=== PATIENT | female | born 1995 | race Caucasian/White ===

== ENCOUNTER 2022-11-06 18:46 | Emergency (ER) | payer OTHER, SELFPAY ==
[2022-11-06 18:47] VITALS: BP 133/68; PULSE 77; RESP 18; TEMP 36.6; O2SAT 97; BMI 26.6
--- NOTE | 2022-11-06 18:54 | ECG_ITS ---
[facility] Test Date: 2022-11-06 Pat Name: GREG ALBERTO Department: Room: - Gender: Female [place]: : 1995 Requested By: [id number] Order Number: [id number] Reading MD: JESUS PAYNE Measurements Intervals [place] Rate: 58 P: 26 GA: 144 QRS: 80 QRSD: 100 T: 52 QT: 422 QTc: 419 Interpretive Statements 1100 Sinus bradycardia 1102 Sinus arrhythmia 9110 normal ECG No previous ECG available for comparison Electronically Signed On 11-08-2022 7:03:34 EDT by JESUS PAYNE
--- NOTE | 2022-11-06 19:12 | ED_ITS ---
HPI - General Adult General Chief complaint: Dizziness Stated complaint: DIZZNESS Time Seen by Provider: 11/06/22 19:06 Source: patient Mode of arrival: ambulance Limitations: no limitations History of Present Illness HPI narrative: This 26-year-old female with a history of iron deficiency anemia who is otherwise healthy and denies , tobacco use or control use presents for evaluation of an episode of dizziness. Patient states she was standing at the kitchen sink at her mom's house and suddenly fell dizziness. She states she felt like her head was spinning about her whole body was dizzy as well. She lied down on the floor and started having a panic attack and was hyperventilating at which time she felt numbness and tingling. She developed a generalized headache with some nausea. She states she is feeling much better at this time. She did not vomit and she did not pass out. She complains of a mild generalized headache. His nausea has improved. She is not on any medications for anxiety or depression. She denies that she was outside a lot today but was outside a lot over the weekend. She denies any chest pain or shortness of breath. She has no abdominal pain or back pain. She has no lower extremity pain or swelling. Related Data Home Medications Medication Instructions Recorded Confirmed No Known Home Medications 11/06/22 11/06/22 Allergies Allergy/AdvReac Type Severity Reaction Status Date / Time No Known Drug Allergies Allergy Verified 11/06/22 18:52 Review of Systems ROS Status of ROS 10 or more systems reviewed and unremarkable except as noted in history and below Exam Narrative Exam Narrative: Nurses note and vital signs reviewed and patient is not hypoxic. General: The patient appears well and in no apparent distress. Patient is resting comfortably on cart. She complains of mild dizziness when sitting up from a supine position Skin: Warm, dry, no pallor noted. There is no rash noted. Head: Normocephalic, atraumatic Eye: Normal conjunctiva, no drainage, EOMI. PERRL. No nystagmus noted Ears, Nose, Mouth, and Throat: oral mucosa is moist. Cardiovascular: Regular Rate and Rhythm Respiratory: Patient is in no distress, no accessory muscle use, lungs are clear to auscultation, no wheezing, rales or rhonchi Back: non-tender, no CVA tenderness bilaterally to percussion. GI: Normal bowel sounds, no tenderness to palpation, no masses appreciated. No rebound, guarding, or rigidity noted. Musculoskeletal: The patient has no evidence of calf tenderness, no pitting edema, symmetrical pulses noted bilaterally Neurological: A&O x4, normal speech Psychiatric: Cooperative, does not appear anxious or panicking Constitutional Vital Signs, click to edit/add: Last Vital Signs Temp 97.9 F 11/06/22 18:47 Pulse 77 11/06/22 18:47 Resp 18 11/06/22 18:47 BP 133/68 11/06/22 18:47 Pulse Ox 97 11/06/22 18:47 O2 Del Method Room Air 11/06/22 18:47 Course Vital Signs Vital signs: Vital Signs Temperature 97.9 F 11/06/22 18:47 Pulse Rate 77 11/06/22 18:47 Respiratory Rate 18 11/06/22 18:47 Blood Pressure 133/68 11/06/22 18:47 Pulse Oximetry 97 11/06/22 18:47 Oxygen Delivery Method Room Air 11/06/22 18:47 Temperature 97.9 F 11/06/22 18:47 Pulse Rate 77 11/06/22 18:47 Respiratory Rate 18 11/06/22 18:47 Blood Pressure 133/68 11/06/22 18:47 Pulse Oximetry 97 11/06/22 18:47 Oxygen Delivery Method Room Air 11/06/22 18:47 Medical Decision Making MDM Narrative Medical decision making narrative: 26-year-old female, nonsmoker, not on control presents for evaluation of an episode of dizziness while standing in the kitchen at her mom's house earlier today. She states she had to lie down on the floor and then started hyperventil ating. When she presented she had some mild as with change of position, she denies any chest pain or shortness of breath. She had mild headache. She had mild nausea. She is no focal neurologic symptoms. EKG done upon arrival was sinus bradycardia at 58 beats for minute. An IV was placed and she was given a liter of normal saline, Zofran,Meclizine and Toradol. On reevaluation she is feeling much better. Her headache and nausea have improved. Routine labs including troponin and d-dimer and urinalysis are reviewed and are normal. She has a normal white count and hemoglobin. She has a normal troponin. She has a normal d-dimer. Urine does not show any sign of infection. The results of her labs were discussed with her she states she is feeling better. She will be discharged home with her mother at this time. I encouraged her to stay very hydrated and return to emergency department as needed for any worsening or continuing symptoms Lab Data Labs: Lab Results 11/06/22 11/06/22 Range/Units 18:57 19:28 WBC 5.5 (4.0-11.0) 10^3/uL RBC 3.93 L (4.20-5.40) 10^6/uL Hgb 11.8 L (12.0-16.0) g/dL Hct 36.5 (36.0-48.0) % MCV 92.9 (81.0-99.0) fL MCH 30.0 (26.7-34.0) pg MCHC 32.3 (29.9-35.2) g/dL RDW 12.0 (11.0-15.0) % Plt Count 275 (150-450) 10^3/uL MPV 10.5 (9.5-13.5) fL Neut % (Auto) 56.1 (43.0-75.0) % Lymph % (Auto) 35.8 (20.5-60.0) % [place] % (Auto) 5.7 (1.7-12.0) % Eos % (Auto) 1.1 (0.9-7.0) % Baso % (Auto) 0.9 (0.2-2.0) % Neut # (Auto) 3.1 (1.4-6.5) 10^3/uL Lymph # (Auto) 2.0 (1.2-3.8) 10^3/uL [place] # (Auto) 0.3 (0.3-0.8) 10^3/uL Eos # (Auto) 0.1 (0.0-0.7) 10^3/uL Baso # (Auto) 0.1 (0.0-0.1) 10^3/uL Abs Immat Gran (auto) 0.02 (0.00-0.03) 10^3/uL Imm/Tot Granulo (auto) 0.4 (0.0-0.5) % D-Dimer <0.19 (<=0.59) mg/L FEU Sodium 140 (136-145) mmol/L Potassium 3.5 (3.5-5.1) mmol/L Chloride 105 (98-107) mmol/L Carbon Dioxide 25.3 (21.0-32.0) mmol/L Anion Gap 13.2 BUN 13.0 (7.0-18.0) mg/dL Creatinine 0.67 (0.55-1.02) mg/dL Est GFR ( Amer) >60 (>=60) Est GFR (Non-Af Amer) >60 (>=60) BUN/Creatinine Ratio 19.4 Glucose 86 (74-106) mg/dL Lactate 1.2 (0.4-2.0) mmol/L Calcium 8.7 (8.5-10.1) mg/dL Total Bilirubin 0.2 (0.2-1.0) mg/dL AST 16 (15-37) U/L ALT 25 (14-59) U/L Alkaline Phosphatase 74 (46-116) U/L Troponin I High Sens <4.0 L (4.0-51.3) pg/mL Total Protein 7.5 (6.4-8.2) g/dL Albumin 4.3 (3.4-5.0) g/dL Globulin 3.2 g/dL Albumin/Globulin Ratio 1.3 Serum HCG, Qual Negative (NEGATIVE) Urine Color Lt. yellow (YELLOW) Urine Clarity Clear (CLEAR) Urine pH 7.0 (5.0-9.0) Ur Specific [place] <=1.005 A (1.005-1.025) Urine Protein Negative (NEG/TRACE) mg/dL Urine Glucose (UA) Negative (NEGATIVE) mg/dL Urine Ketones Negative (NEGATIVE) mg/dL Urine Occult Blood Negative (NEGATIVE) Urine Nitrite Negative (NEGATIVE) Urine Bilirubin Negative (NEGATIVE) Urine Urobilinogen 0.2 (0.2-1.0) EU/dL Ur Leukocyte Esterase Trace A (NEGATIVE) Urine RBC 0-2 (0-2) #/HPF Urine WBC 0-2 A (NONE SEEN) #/HPF Ur Squamous Epith Cells Few A (NONE/RARE) #/LPF Urine Crystals None seen (None Seen) #/HPF Urine Bacteria Trace A (NONE SEEN) #/HPF Urine Casts None seen (NONE SEEN) #/LPF Urine Mucus None seen (NONE SEEN) Ur Culture Indicated? No ECG Data Attestation: I personally reviewed and interpreted this ECG as follows: (Sinus rhythm at 58 beats for minute, normal axis, normal intervals, no acute ST segment elevation or T-wave inversion) Discharge Plan Discharge Chief Complaint: Dizziness Clinical Impression: Dizziness Time of Disposition Decision: 20:37 Condition: Good Prescriptions / Home Meds: No Action No Known Home Medications Instructions: Vertigo (ED), Lightheadedness (ED), Dizziness (ED) Stand Alone Forms: Portal Instructions Referrals: Physician,Non-Staff, MD [Primary Care Provider] - 1 week
[2022-11-06 19:37] LABS: Basophils Absolute Auto 0.1 10^3/uL (0.0-0.1); Basophils Percent Auto 0.9 % (0.2-2.0); Eosinophils Absolute Auto 0.1 10^3/uL (0.0-0.7); Eosinophils Percent Auto 1.1 % (0.9-7.0); Hematocrit 36.5 % (36.0-48.0); Hemoglobin 11.8 g/dL (12.0-16.0); Immature Granulocytes Abs Auto 0.02 10^3/uL (0.00-0.03); Immature Granulocytes Pct Auto 0.4 % (0.0-0.5); Lymphocytes Percent Auto 35.8 % (20.5-60.0); Mean Corpuscular HGB Conc 32.3 g/dL (29.9-35.2); Mean Corpuscular Volume 92.9 fL (81.0-99.0); Mean Platelet Volume 10.5 fL (9.5-13.5); Monocytes Absolute Auto 0.3 10^3/uL (0.3-0.8); Monocytes Percent Auto 5.7 % (1.7-12.0); Neutrophils Absolute Auto 3.1 10^3/uL (1.4-6.5); Neutrophils Percent Auto 56.1 % (43.0-75.0); Platelet Count 275 10^3/uL (150-450); Red Blood Count 3.93 10^6/uL (4.20-5.40); White Blood Count 5.5 10^3/uL (4.0-11.0)
[2022-11-06] MEDS: KETOROLAC TROMETHAMINE 30 MG/ML VIAL IVP (19:37)
[2022-11-06] MEDS: 0.9 % SODIUM CHLORIDE 1,000 ML 999 ML IV (19:38)
[2022-11-06] MEDS: ONDANSETRON PF 4 MG/2 ML VIAL IV (19:38)
[2022-11-06] MEDS: MECLIZINE HCL 12.5 MG TABLET 25 MG PO (19:38)
[2022-11-06 19:57] LABS: D Dimer <0.19 mg/L FEU (<=0.59)
[2022-11-06 19:58] LABS: Lactate/Lactic Acid 1.2 mmol/L (0.4-2.0)
[2022-11-06 20:06] LABS: Alanine Aminotransferase 25 U/L (14-59); Albumin Globulin Ratio 1.3; Albumin Level 4.3 g/dL (3.4-5.0); Alkaline Phosphatase 74 U/L (46-116); Anion Gap 13.2; Aspartate Amino Transferase 16 U/L (15-37); BUN Creatinine Ratio 19.4; Bilirubin Total 0.2 mg/dL (0.2-1.0); Calcium 8.7 mg/dL (8.5-10.1); Carbon Dioxide 25.3 mmol/L (21.0-32.0); Chloride 105 mmol/L (98-107); Estimated GFR (African America >60 (>=60); Estimated GFR (Non-African Ame >60 (>=60); Globulin 3.2 g/dL; Glucose 86 mg/dL (74-106); Potassium 3.5 mmol/L (3.5-5.1); Sodium 140 mmol/L (136-145); Total Protein 7.5 g/dL (6.4-8.2); Troponin I High Sensitivity <4.0 pg/mL (4.0-51.3)
[2022-11-06 20:10] LABS: HCG Qualitative NEGATIVE (NEGATIVE)
[2022-11-06 20:13] LABS: Bilirubin Urine NEGATIVE (NEGATIVE); Blood Urine NEGATIVE (NEGATIVE); Clarity Urine CLEAR (CLEAR); Color Urine LT. YELLOW (YELLOW); Glucose Urine UA NEGATIVE (NEGATIVE); Ketones Urine NEGATIVE (NEGATIVE); Leukocyte Esterase Urine TRACE (NEGATIVE); Nitrite Urine NEGATIVE (NEGATIVE); Protein Urine NEGATIVE (NEG/TRACE); Specific Gravity Urine <=1.005 (1.005-1.025); Urobilinogen Urine 0.2 EU/dL (0.2-1.0)
[2022-11-06 20:18] LABS: Urine Microscopic Indicated YES
[2022-11-06 20:22] LABS: Bacteria Urine TRACE #/HPF (NONE SEEN); Mucus Urine NONE SEEN (NONE SEEN); RBC Urine 0-2 #/HPF (0-2); Squamous Epithelial Cell Urine FEW #/LPF (NONE/RARE); WBC Urine 0-2 #/HPF (NONE SEEN)
[2022-11-06 20:23] LABS: Cast Seen? NONE SEEN #/LPF (NONE SEEN); Crystals Seen? None Seen #/HPF (None Seen); Urine Culture Indicated NO
== END 2022-11-06 20:58 | disposition home or self-care (01) ==
PROVIDERS: Emergency Provider Emergency Medicine
DX: R42 Dizziness and giddiness (principal)
CPT/HCPCS: 36415; 80053; 81001; 81003; 83605; 84484; 84703; 85025; 85378; 93005; 96374; 96375; 99285